=== PATIENT | male | born 1970 ===

== ENCOUNTER → 2019-07-29 | Emergency (ER) | payer OTHER ==
[~2019-07-29] VITALS: Ht 180.3 cm; Wt 106.6 kg
== END | disposition left against medical advice (07) ==
LOC: ER 10:36
DX: S02.69XA Fracture of mandible of other specified site, initial encounter for closed fracture (principal); Y08.89XA Assault by other specified means, initial encounter; Y93.89 Activity, other specified; Y92.89 Other specified places as the place of occurrence of the external cause; Y99.8 Other external cause status